=== PATIENT | female | born 2000 | race African-American/Black ===

== ENCOUNTER 2022-01-11 10:48 | Day surgery (SDC) | payer OTHER ==
--- NOTE | 2022-01-11 10:39 | History and Physical Report ---
History of Present Illness Date of examination: 01/11/22 Chief complaint: Missed History of present illness: Pt is a 21 year old primigravida LMP 10/16/21 at 12w3d presents for surgical management of missed at 7w5d. Past History Past Medical History: no pertinent history Past Surgical History: no surgical history Family/Genetic History: diabetes Social history: no significant social history - Obstetrical History Expected Date of Delivery: 07/23/22 Actual Gestation: 12 Week(s) 3 Day(s) : 1 Medications and Allergies Allergies Allergy/AdvReac Type Severity Reaction Status Date / Time No Known Allergies Allergy Unverified 01/10/22 15:24 Home Medications Medication Instructions Recorded Confirmed Last Taken Type No Known Home Medications [No 01/10/22 01/10/22 Unknown History Reported Home Medications] Active Meds: Active Medications Lactated Ringer's (Lactated Ringers) 1,000 mls @ 75 mls/hr IV DIRECT DANIELE Doxycycline Hyclate 100 mg/ (Sodium Chloride) 250 mls @ 250 mls/hr IV ONCE ONE; Protocol Stop: 01/11/22 13:59 Methylergonovine Maleate (Methylergonovine Maleate 0.2 Mg/Ml Vial) 0.2 mg IM ONCE ONE Stop: 01/11/22 13:01 Misoprostol (Misoprostol 200 Mcg Tab) 800 mcg DC ONCE ONE Stop: 01/11/22 13:01 Review of Systems All systems: negative - Physical Exam Breasts: Positive: deferred Cardiovascular: Regular rate Lungs: Positive: Clear to auscultation Extremities: Positive: normal Results All other labs normal. Assessment and Plan A: Missed at 7w5d P: Proceed with suction dilation and curettage and other indicated procedures
[~2022-01-11 10:48] MED LIST: LACTATED RINGERS 1,000 ML IV SCH
[2022-01-11] MEDS ORDERED: HYDROmorphone 0.5 MG/0.5 ML INJ IV PRN (11:22)
[2022-01-11] MEDS ORDERED: ONDANSETRON 4 MG/2 ML INJ IV PRN (11:22)
--- NOTE | 2022-01-11 11:23 | Anesthesia Day of Surgery ---
Anesthesia Day of Surgery - Day of Surgery Patient Examined: Yes Patient H&P Reviewed: Yes Patient is NPO: Yes
--- NOTE | 2022-01-11 11:23 | Anesthesia Consultation ---
Anesthesia Consult and Med Hx Date of service: 01/11/22 - Airway Anesthetic Teeth Evaluation: Good ROM Head & Neck: Adequate Mental/Hyoid Distance: Adequate Mallampati Class: Class III Intubation Access Assessment: Probably Good - Pre-Operative Health Status ASA Pre-Surgery Classification: ASA1 Proposed Anesthetic Plan: General - Pulmonary Hx Smoking: No Hx Sleep Apnea: No - Central Nervous System Hx Psychiatric Problems: No - Gastrointestinal Hx Gastroesophageal Reflux Disease: No - Other Systems Hx Cancer: No
[2022-01-11 11:57] LABS: Hematocrit 37.4 % (30.3-42.9); Hemoglobin 12.9 gm/dl (10.1-14.3); Mean Corpuscular HGB Conc 35 % (30-34); Mean Corpuscular Volume 94 fl (79-97); Platelet Count 189 K/mm3 (140-440); Red Blood Count 3.99 M/mm3 (3.65-5.03); Red Cell Distribution Width 12.5 % (13.2-15.2)
[2022-01-11] MEDS ORDERED: MIDAZOLAM 2 MG/2 ML INJ IV NR (12:00)
[2022-01-11] MEDS ORDERED: METHYLERGONOVINE MALEATE 0.2 MG/ML VIAL IM ONE ×2 (13:00→14:15)
[2022-01-11] MEDS ORDERED: DOXYCYCLINE HYCLATE 100 MG in SODIUM CHLORIDE 0.9% 250ML 250 ML IV ONE (13:00)
[2022-01-11] MEDS ORDERED: miSOPROStol 200 MCG TAB PR ONE ×2 (13:00→14:15)
[2022-01-11] MEDS ORDERED: HYDROmorphone 1 MG/1 ML INJ ONE (13:18)
[2022-01-11] MEDS ORDERED: propofoL 200 MG/20 ML VIAL IV ONE (13:18)
[2022-01-11] MEDS ORDERED: fentaNYL 100 MCG/2 ML INJ ONE (13:34)
[2022-01-11] MEDS ORDERED: MIDAZOLAM 2 MG/2 ML INJ ONE (13:34)
[2022-01-11] MEDS ORDERED: ONDANSETRON 4 MG/2 ML INJ ONE (13:35)
[2022-01-11] MEDS ORDERED: dexAMETHasone 20 MG/5 ML VIAL ONE (13:35)
[2022-01-11] MEDS ORDERED: SODIUM CHLORIDE 0.9% IRR 1,500 ML BOTTLE IR ONE (14:16)
--- NOTE | 2022-01-11 14:55 | Operative Report ---
Operative Report Operative Report: Date of procedure: January 11, 2022 Preoperative diagnosis: Missed at 7 wks Postoperative diagnosis: Same Procedure: Suction Dilation and Curettage Surgeon: Mckayla Ayala MD Anesthesia: General Findings: 1) Small mobile antervered uterus EBL: 350 mL Urine output: 50 mL, clear, prior to procedure Specimens: Products of conception to pathology Drains: None Complications: None. Counts correct x 2 Disposition: Stable to PACU Indication for procedure: Pt is a 21 year old primigravida who presents for surgical management of missed at 7 wks. Procedure in detail: After the risks, benefits, alternatives and complications were explained to the patient she gave informed consent for the procedure. She was subsequently taken to the operating room with her IV noted to be running well. She was placed in the dorsal supine position and SCDs were noted to be in place and functioning. General anesthesia was then induced without difficulty. She was then placed in the dorsal lithotomy position and prepped and draped in a normal sterile fashion. A timeout was performed. The bladder was emptied yielding 50 mL of clear urine. A bi-valve speculum was placed into the vagina for visualization of the cervix. A single-tooth tenaculum was placed on the anterior lip of the cervix. The cervix was serially dilated to a #25 Taylor dilator. A number 8 rigid suction curette was used to evacuate the uterine cavity. A sharp curettage was done and noted to be gritty x 4 quadrants. A dose of Methergine 0.2 mg IM was given to ensure hemostasis. All instruments were then removed from the vagina atraumatically. Misoprostol 800 mg was placed per rectum. At this time, the procedure was ended. The patient was placed into the dorsal supine position and extubated without difficulty. She was then taken to the PACU in stable condition. All counts were correct x 2.
[2022-01-11] MEDS: HYDROmorphone 0.5 MG/0.5 ML INJ IV PRN ×2 (15:01→15:23)
--- NOTE | 2022-01-11 15:03 | Short Stay Summary ---
Short Stay Documentation Date of service: 01/11/22 - History H&P: dictated Social history: no significant social history - Allergies and Medications Current Medications: Allergies No Known Allergies Allergy (Unverified 01/10/22 15:24) Home Medications Medication Instructions Recorded Confirmed Last Taken Type RX: No Known Home Medications [No 01/10/22 01/10/22 Unknown History Reported Home Medications] Active Medications Hydromorphone HCl (Hydromorphone 0.5 Mg/0.5 Ml Inj) 0.5 mg IV Q10MIN PRN PRN Reason: Pain , Severe (7-10) Stop: 01/11/22 20:00 Hydromorphone HCl (Hydromorphone 0.5 Mg/0.5 Ml Inj) 0.25 mg IV Q10MIN PRN PRN Reason: Pain, Moderate (4-6) Stop: 01/11/22 20:00 Lactated Ringer's (Lactated Ringers) 1,000 mls @ 75 mls/hr IV DIRECT DANIELE Midazolam HCl (Midazolam 2 Mg/2 Ml Inj) 2 mg IV PREOP NR Stop: 01/11/22 23:59 Ondansetron HCl (Ondansetron 4 Mg/2 Ml Inj) 4 mg IV ONCE PRN PRN Reason: Nausea And Vomiting Stop: 01/11/22 15:00 - Physical exam Breasts: deferred - Brief post op/procedure progress note Date of procedure: 01/11/22 Pre-op diagnosis: Missed at 7 wks Post-op diagnosis: same Procedure: Suction Dilation and Curettage Anesthesia: GETA Findings: Small anteverted uterus Surgeon: PARVEEN RIBERA Estimated blood loss: other (350 mL) Pathology: list (products of contraception) Specimen disposition: to lab Condition: stable - Hospital course Hospital course: Pt underwent suction dilation and curettage which she tolerated well. She was observed in the PACU until she met discharge criteria. She will follow up in the office in 2 wks. - Disposition Condition at discharge: Stable Disposition: 01 HOME / SELF CARE / HOMELESS - Discharge Diagnoses (1) Missed Status: Acute Short Stay Discharge Plan Activity: other (Nothing in vagina, no tub baths, no swimming, no intercourse for 4 wks ) Weight Bearing Status: Full Weight Bearing Diet: regular Additional Instructions: KEEP FOLLOW UP APPOINTMENT YOU MAY RESUME YOUR REGULAR DIET--AVOID SPICY OR GREASY FOODS X 24 HRS TAKE MEDS PRESCRIBED DO NOT DRIVE, OPERATE HEAVY EQUIPMENT, OR SIGN LEGAL DOCUMENTS X 24 HRS Follow up with: PRIMARY CAREMD [Primary Care Provider] - 7 Days PARVEEN RIBERA MD [Staff Physician] - 14 Days (Please schedule post op appt ) Forms: Outpatient Surgery DC Inst. Prescriptions: Ibuprofen [Motrin] 800 mg PO Q8HR PRN #30 tablet PRN Reason: Pain, Moderate (4-6) HYDROcodone/APAP 5-325 [[place] 5/325] 1 each PO Q6HR PRN #10 tablet PRN Reason: Pain
[2022-01-11 17:14] VITALS: BP 108/56
--- NOTE | 2022-01-11 17:22 | Ultrasound Report ---
US guide intraoperative INDICATION / CLINICAL INFORMATION: Missed , 7 wks TECHNIQUE: Intraoperative sonographic images were obtained during the procedure. FINDINGS: Intraoperative sonographic images for Dr. Ayala. See operative/procedure note by performing physician for full details. Ultrasound Images: 11. Scribed by: Deborah Guerra RDMS, RVT, RMSKS Scribed: 01/11/2022 2:58 PM I have reviewed the images, agree with this report, and edited this report as needed. Signer Name: Trevor Goel MD Signed: 01/11/2022 5:18 PM Workstation Name: [id number]
--- NOTE | 2022-01-11 19:56 | Post Anesthesia Evaluation ---
- Post Anesthesia Evaluation Patient Participated: Yes Airway Patent: Yes Stable Respiratory Function: Yes Nausea/Vomiting: No Temp > 96.8F: Yes Pain Manageable: Yes Adequeate Hydration: Yes Anesthesia Complications: No Block Receding Appropriately: Not Applicable Patient on Ventilator: No
== END 2022-01-11 16:00 | disposition home or self-care (01) ==
LOC: OR 10:48
PROVIDERS: ATTEND Obstetrics & Gynecology
DX: O02.1 Missed abortion (principal); Z3A.01 Less than 8 weeks gestation of pregnancy; Z79.899 Other long term (current) drug therapy; Z98.890 Other specified postprocedural states
CPT/HCPCS: 36415; 59820; 76998; 85027; 86850; 86900; 86901; 88305; J1100; J1170; J2210; J2250; J2405; J2704; J3010; J3490; J7050; J7120